=== PATIENT | female | born 1985 | race Caucasian/White ===

== ENCOUNTER 2025-04-10 14:52 | Emergency (ER) | payer OTHER ==
[~2025-04-10] VITALS: Ht 167.6 cm; Wt 105.6 kg
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
[2025-04-10] MEDS ORDERED: HYDROmorphone HCL 1 MG/ML SYR IV PRN (15:15)
[2025-04-10] MEDS ORDERED: SODIUM CHLORIDE 0.9% 1,000 ML IV ONE (15:15)
[2025-04-10 15:27] LABS: BASOPHILS 0.2 % (0.1-1.2); EOSINOPHILS 0.2 % (0.7-5.8); LYMPHOCYTES 9.5 % (19.3-51.7); MCH 33.7 PG (25.6-32.2); MCHC 35.1 g/dL (32.2-35.5); MCV 95.9 fL (79.4-94.8); MONOCYTES 9.2 % (4.7-12.5); NEUTROPHILS 80.5 % (34.0-71.1); RBC 4.13 M/uL (3.93-5.22)
[2025-04-10 15:42] LABS: BLOOD/HGB, URINE NEGATIVE (Negative); KETONE, URINE NEGATIVE (Negative); LEUK ESTERASE, URINE TRACE (negative); NITRITE, URINE NEGATIVE (negative)
[2025-04-10 15:46] LABS: ALT (SGPT) 7.0 U/L (14-59); AST (SGOT) 18.0 U/L (15-37); GLOMERULAR FILTRATION RATE,EST 77.0 mL/min (>60); PROTEIN, TOTAL 7.5 g/dL (6.4-8.2); UREA NITROGEN 3.0 mg/dL (7-18)
[2025-04-10 15:48] LABS: EPITHELIAL CELLS, URINE SQUAMOUS 2+ /lpf (0-1+)
[2025-04-10 15:49] LABS: BACTERIA, URINE 1+ /hpf (negative); CASTS, URINE NONE SEEN \\lpf; CRYSTALS, URINE NONE SEEN (0-1+); REFLEX CULTURE, URINE No (No)
[2025-04-10 19:35] VITALS: BP 142/91
== END 2025-04-10 19:34 | disposition short-term general hospital (02) ==
LOC: ED 14:52
PROVIDERS: Emergency Medicine
DX: N12 Tubulo-interstitial nephritis, not specified as acute or chronic (principal); N15.1 Renal and perinephric abscess; E66.9 Obesity, unspecified; Z68.37 Body mass index [BMI] 37.0-37.9, adult; Z88.6 Allergy status to analgesic agent
CPT/HCPCS: 36415; 74177; 80053; 81001; 83690; 85025; 96374; 96375; 96376; 99285-25; J0696; J1171; J2405; J7030; Q9967